=== PATIENT | male | born 1970 | race Caucasian/White ===

== ENCOUNTER 2021-05-27 21:19 | Emergency (ER) | payer BC, OTHER ==
[2021-05-27 21:41] VITALS: TEMP 98.7; BMI 31.5
[2021-05-27] MEDS ORDERED: DIPHTH,PERTUSS(ACELL),TET 0.5 ML DISP.SYRIN IM ONE ×2 (22:20→22:22)
[2021-05-27] MEDS ORDERED: CEPHALEXIN MONOHYDRATE 500 MG CAPSULE (UD) PO ONE (22:20)
[2021-05-27] MEDS ORDERED: CEPHALEXIN MONOHYDRATE 500 MG CAPSULE (UD) ONE (22:22)
[2021-05-27 22:36] VITALS: BP 220/104; PULSE 90
== END 2021-05-27 22:42 | disposition home or self-care (01) ==
LOC: FER 21:19
PROC: 0HQFXZZ Repair Right Hand Skin, External Approach (ICD-10-PCS; principal; 2021-05-27)
PROC: 3E0234Z Introduction of Serum, Toxoid and Vaccine into Muscle, Percutaneous Approach (ICD-10-PCS; 2021-05-27)
DX: S61.214A Laceration without foreign body of right ring finger without damage to nail, initial encounter (principal)
CPT/HCPCS: 90715; 99284-25

== ENCOUNTER 2021-06-07 07:10 | Emergency (ER) | payer BC, OTHER ==
[2021-06-07 07:18] VITALS: BP 196/89; PULSE 74; TEMP 98.7; BMI 28.3
== END 2021-06-07 07:45 | disposition home or self-care (01) ==
LOC: FER 07:10
DX: Z48.02 Encounter for removal of sutures (principal)
CPT/HCPCS: 99281-25